=== PATIENT | male | born 1975 | race American Indian/Alaskan Native ===

== ENCOUNTER 2018-09-21 13:00 | Emergency (ER) | payer SELFPAY ==
[2018-09-21 13:10] VITALS: BP 132/91
--- NOTE | 2018-09-21 13:10 | Emergency Department Report ---
Chief Complaint: Sore Throat Stated Complaint: THROAT PAIN/LFT EAR Time Seen by Provider: 09/21/18 13:08 - HPI History of Present Illness: l eye pink l ear pain l throat pain for a week abc intact controlling secretions psh scrotal surgery pmh none rx none etoh occ drugs none cigar pcp none MSE COMPLETED MSE screening note: Focused history and physical exam performed. Due to findings the following was ordered: ED Disposition for MSE Condition: Stable
[2018-09-21] MEDS ORDERED: HYDROGEN PEROXIDE TP ONE (13:56)
[2018-09-21] MEDS ORDERED: HYDROGEN PEROXIDE ONE (13:58)
--- NOTE | 2018-09-21 14:26 | Emergency Department Report ---
Minor Respiratory - HPI Chief Complaint: Sore Throat Stated Complaint: THROAT PAIN/LFT EAR Time Seen by Provider: 09/21/18 13:08 Duration: 7 Pain Location: Ear Severity: mild Minor Respiratory: Yes Sore Throat, Yes Able to Tolerate Fluids, Yes Ear Pain, No Rhinorrhea, No Cough, No Sick Contacts, No Hemoptysis, No Chest Pain, No Shortness of Breath, No Fever Other History: Mr. Vaca is a healthy 43-year-old male who presents with left ear and left throat pain for the last week. No fever no cough no nasal congestion. Has had drainage in the back of throat. Mild symptoms. Pain appears to be worse when he swallows and radiates to the left ear. ED Review of Systems ROS: Stated complaint: THROAT PAIN/LFT EAR Other details as noted in HPI Constitutional: denies: fever, malaise ENT: ear pain. denies: dental pain Respiratory: denies: cough Cardiovascular: denies: chest pain ED Past Medical Hx - Past Medical History Previous Medical History?: No - Surgical History Past Surgical History?: Yes Additional Surgical History: lap scrotal as child - Social History Smoking Status: Current Some Day Smoker Substance Use Type: Alcohol Minor Respiratory Exam - Exam General: Vital signs noted. No distress. Alert and acting appropriately. HEENT: Yes Moist Mucous Membranes, No Pharyngeal Erythema, No Pharyngeal Exudate s, No Rhinorrhea Ear: Left EAC Pain (cerumen impaction ) Neck: Yes Adenopathy, No Supple Lungs: Yes Good Air Exchange, No Ronchi, No Stridor, No Cough, No Labored Respirations, No Retractions, No Use of Accessory Muscles Heart: Yes Regular, No Murmur Skin: No Rash, No Edema Neurologic: Alert and oriented, no deficits. Musculoskeletal: Unremarkable. ED Course Vital Signs 09/21/18 13:08 Temperature 98.2 F Pulse Rate 82 Respiratory 18 Rate Blood Pressure 132/91 [Right] O2 Sat by Pulse 100 Oximetry ED Medical Decision Making - Medical Decision Making Mr. Vaca has pain due to left cerumen impaction. I and nurse staff were able to remove majority of wax with currette and hydrogen peroxide. Symptoms improved after wax removal. Recommended over the counter wax removal solution and decongestants. Critical care attestation.: If time is entered above; I have spent that time in minutes in the direct care of this critically ill patient, excluding procedure time. ED Disposition Clinical Impression: Impacted cerumen of left ear Disposition: DC-01 TO HOME OR SELFCARE Is pt being admited?: No Does the pt Need Aspirin: No Condition: Stable Instructions: Cerumen Impaction (ED) Referrals: [facility] [Outside] - as needed Forms: Work/School Release Form(ED)
== END 2018-09-21 14:32 | disposition home or self-care (01) ==
LOC: ED 13:00
DX: H61.22 Impacted cerumen, left ear (principal); F17.200 Nicotine dependence, unspecified, uncomplicated

== ENCOUNTER 2019-01-26 08:43 | Emergency (ER) | payer OTHER ==
[2019-01-26 08:54] VITALS: BP 147/87
[2019-01-26] MEDS ORDERED: NORCO 10/325 PO ONE (09:35)
--- NOTE | 2019-01-26 10:05 | Emergency Department Report ---
ED General Adult HPI - General Chief complaint: Extremity Injury, Upper Stated complaint: RT SIDE PAIN Time Seen by Provider: 01/26/19 09:25 Source: patient Mode of arrival: Ambulatory Limitations: No Limitations - History of Present Illness Initial comments: This is a 43-year-old male nontoxic, well nourished in appearance, no acute signs of distress presents to the ED with c/o of right lateral rib pain status post fall that occurred yesterday. Patient stated that he had a mechanical trip and fall and fell on a iron last night. Patient stated he has right-sided rib pain in pain upon inspiration. Patient denies any shortness of breath. Patient denies any fever, chills, nausea, vomiting, headache, stiff neck, numbness or tingling. Patient denies any other trauma or injuries. Denies any back pain, neck pain or any head trauma. Denies any allergies significant past medical history. Denies any loss of consciousness. -: Last night Location: chest Radiation: non-radiation Severity scale (0 -10): 8 Quality: aching Consistency: constant Improves with: none Worsens with: none Associated Symptoms: denies other symptoms. denies: confusion, chest pain, cough, diaphoresis, fever/chills, headaches, loss of appetite, malaise, nausea/vomiting, rash, seizure, shortness of breath, syncope, weakness - Related Data Previous Rx's Medication Instructions Recorded Last Taken Type Acetaminophen/Codeine [Tylenol 1 tab PO Q6H PRN #20 tab 01/26/19 Unknown Rx /Codeine # 3 tab] Allergies Allergy/AdvReac Type Severity Reaction Status Date / Time No Known Allergies Allergy Verified 09/21/18 14:00 ED Review of Systems ROS: Stated complaint: RT SIDE PAIN Other details as noted in HPI Constitutional: denies: chills, fever Eyes: denies: eye pain, eye discharge, vision change ENT: denies: ear pain, throat pain Respiratory: denies: cough, shortness of breath, wheezing Cardiovascular: denies: chest pain, palpitations Endocrine: no symptoms reported Gastrointestinal: denies: abdominal pain, nausea, diarrhea Genitourinary: denies: urgency, dysuria Musculoskeletal: denies: back pain, joint swelling, arthralgia Skin: denies: rash, lesions Neurological: denies: headache, weakness, paresthesias Psychiatric: denies: anxiety, depression Hematological/Lymphatic: denies: easy bleeding, easy bruising ED Past Medical Hx - Past Medical History Previous Medical History?: No - Surgical History Past Surgical History?: Yes Additional Surgical History: lap scrotal as child - Social History Smoking Status: Never Smoker Substance Use Type: Alcohol - Medications Home Medications: Home Medications Medication Instructions Recorded Confirmed Last Taken Type Acetaminophen/Codeine [Tylenol 1 tab PO Q6H PRN #20 tab 01/26/19 Unknown Rx /Codeine # 3 tab] ED Physical Exam - General Limitations: No Limitations General appearance: alert, in no apparent distress - Head Head exam: Present: atraumatic, normocephalic - Eye Eye exam: Present: normal appearance - Neck Neck exam: Present: normal inspection, full ROM. Absent: tenderness, meningismus, lymphadenopathy - Respiratory Respiratory exam: Present: normal lung sounds bilaterally, chest wall tenderness (right lateral rib ). Absent: respiratory distress, wheezes, rales, rhonchi, stridor, accessory muscle use, decreased breath sounds, prolonged expiratory - Cardiovascular Cardiovascular Exam: Present: regular rate, normal rhythm, normal heart sounds. Absent: bradycardia, tachycardia, irregular rhythm, systolic murmur, diastolic murmur, rubs, gallop - GI/Abdominal GI/Abdominal exam: Present: soft, normal bowel sounds. Absent: distended, tenderness, guarding, rebound, rigid, diminished bowel sounds - Rectal Rectal exam: Present: deferred - Extremities Exam Extremities exam: Present: normal inspection, full ROM, normal capillary refill - Back Exam Back exam: Present: normal inspection, full ROM. Absent: tenderness, CVA tenderness (R), CVA tenderness (L), muscle spasm, paraspinal tenderness, vertebral tenderness, rash noted - Neurological Exam Neurological exam: Present: alert, oriented X3, normal gait - Psychiatric Psychiatric exam: Present: normal affect, normal mood - Skin Skin exam: Present: warm, dry, intact, normal color. Absent: rash ED Course Vital Signs 01/26/19 01/26/19 08:53 09:59 Temperature 98.1 F Pulse Rate 78 Respiratory 20 18 Rate Blood Pressure 147/87 [Right] O2 Sat by Pulse 97 Oximetry - Reevaluation(s) Reevaluation #1: 01/26/19 10:03 Patient is speaking in full sentences with no signs of distress noted. ED Medical Decision Making - Medical Decision Making This is a 43-year-old male that presents with a right rib 7th fracture. Patient is stable and was examined by me. Patient was given incentive spirometer and was educated by RN how to use it and how many times a day to use it as well as by me. He should receive Boody in the ER which he stated his symptoms of pain is subsiding and stated that a family member will drive the patient home after discharge due to possible drowsiness. A CT scan without contrast of chest has been obtained and dictated by radiologist. Patient was notified of the CT results with all questions noted by the patient. I will discharge patient with Tylenol with codeine for pain. Patient was instructed to Follow-up with a primary care doctor in 3-5 days or if symptoms worsen and continue return to emergency room as soon as possible. At time of discharge, the patient does not seem toxic or ill in appearance. No acute signs of distress noted. Patient agrees to discharge treatment plan of care. No further questions noted by the patient. Critical care attestation.: If time is entered above; I have spent that time in minutes in the direct care of this critically ill patient, excluding procedure time. ED Disposition Clinical Impression: Right rib fracture Qualifiers: Encounter type: initial encounter Rib fracture type: single rib Fracture type: closed Qualified Code(s): S22.31XA - Fracture of one rib, right side, initial encounter for closed fracture Disposition: DC-01 TO HOME OR SELFCARE Is pt being admited?: No Does the pt Need Aspirin: No Condition: Stable Instructions: Rib Fracture (ED), Acetaminophen/Codeine (By mouth), How to Use an Incentive Spirometer (ED) Additional Instructions: Follow-up with a primary care doctor in 3-5 days or if symptoms worsen and continue return to emergency room as soon as possible. Do not operate any machinery while taking Tylenol with codeine as this may cause drowsiness. Prescriptions: Acetaminophen/Codeine [Tylenol /Codeine # 3 tab] 1 tab PO Q6H PRN #20 tab PRN Reason: Pain , Severe (7-10) Referrals: [facility] MD AMILCAR [Primary Care Provider] - 3-5 Days PRIMARY CAREMD [Referring] - 3-5 Days GIGI MAGDALENO MD [Staff Physician] - 3-5 Days [facility] [Outside] - 3-5 Days [facility] [Outside] - 3-5 Days Forms: Work/School Release Form(ED)
--- NOTE | 2019-01-26 10:51 | Cat Scan Report ---
EXAM: CT CHEST WO CON HISTORY: right rib pain s/p fall TECHNIQUE: Spiral axial CT images are obtained through the chest without the administration of intrav enous contrast. Additional sagittal and coronal reformatted images are reconstructed. COMPARISON: None available. FINDINGS: CARDIOVASCULAR: The heart size and mediastinal vascular structures are within normal limits for non- dedicated exam. There is no significant aortic or coronary atherosclerosis seen. No thoracic aortic aneurysm is noted. MEDIASTINUM AND PAULA: No mass lesion, lymphadenopathy, or abnormal fluid collection is seen. LUNGS: There is no acute parenchymal infiltrate, lung nodule, or endobronchial obstructing lesion see n. No pleural effusion or pneumothorax is evident. CHEST WALL: Acute nondisplaced right lateral seventh rib fracture. The visualized bony structures ar e otherwise within normal limits. There are no chest wall lesions seen. No axillary lymphadenopathy is noted. UPPER ABDOMEN: Limited views through the upper abdomen demonstrate no gross acute abnormality. NOTE: Suboptimal exam for post traumatic evaluation without IV contrast administration. Note that sma ll or subtle post traumatic changes can be obscured in this radiologic setting. Consider followup khadijah luation with postcontrast CT for optimal assessment as clinically warranted. IMPRESSION: 1. Acute nondisplaced right lateral seventh rib fracture. 2. No chest wall or mediastinal hematoma, pleural effusion, pneumothorax, or lung contusion seen. This document is electronically signed by Kendal Blair MD., January 26 2019 10:49:42 AM ET
== END 2019-01-26 11:35 | disposition home or self-care (01) ==
LOC: ED 08:43
DX: S22.31XA Fracture of one rib, right side, initial encounter for closed fracture (principal); W01.0XXA Fall on same level from slipping, tripping and stumbling without subsequent striking against object, initial encounter; Y93.89 Activity, other specified; Y92.89 Other specified places as the place of occurrence of the external cause; Y99.8 Other external cause status
CPT/HCPCS: 71250; 99283

== ENCOUNTER 2021-02-07 14:34 | Emergency (ER) | payer SELFPAY ==
[2021-02-07 16:27] VITALS: BP 150/82
== END 2021-02-07 19:00 | disposition left against medical advice (07) ==
LOC: ED 14:34
DX: M25.512 Pain in left shoulder (principal); Z53.21 Procedure and treatment not carried out due to patient leaving prior to being seen by health care provider

== ENCOUNTER 2021-06-11 07:39 | Emergency (ER) | payer SELFPAY ==
--- NOTE | 2021-06-11 07:59 | Emergency Department Report ---
ED General Adult HPI - General Chief complaint: Headache Stated complaint: HICKUPS 3 DAYS PAIN IN CHEST Time Seen by Provider: 06/11/21 07:54 Source: patient Mode of arrival: Ambulatory Limitations: No Limitations - History of Present Illness Initial comments: 45-year-old -[place] male presents to the emergency room complaining of intermittent hiccups. Patient states in the last 3 days they have been more pronounced to the point they will cause him to have chest discomfort and a headache. Patient reports now he just has a slight headache no chest pain. Patient admits that he does drink alcohol only on the weekends socially. He denies any other past medical history. States that he has been seen at [place] before for this and they cannot find a reason. Patient reports he had called EMS yesterday and they did check his vital signs and evaluated him. Patient states his morning he decided to come in to be evaluated. States he last took some Advil was yesterday. He states he has a slight headache. Patient denies any head injury no change of vision no palpitation. States his chest pain is only from hiccuping. Onset/Timin -: days(s) Severity scale (0 -10): 4 Associated Symptoms: headaches (Slight) Treatments Prior to Arrival: none - Related Data Previous Rx's Medication Instructions Recorded Last Taken Type Acetaminophen/Codeine [Tylenol 1 tab PO Q6H PRN #20 tab 01/26/19 Unknown Rx /Codeine # 3 tab] Baclofen [Lioresal] 10 mg PO TID PRN #15 tab 06/11/21 Unknown Rx Omeprazole 20 mg PO QDAY #15 tablet. 06/11/21 Unknown Rx Allergies Allergy/AdvReac Type Severity Reaction Status Date / Time No Known Allergies Allergy Verified 09/21/18 14:00 ED Review of Systems ROS: Stated complaint: HICKUPS 3 DAYS PAIN IN CHEST Other details as noted in HPI ED Past Medical Hx - Past Medical History Previous Medical History?: No - Surgical History Past Surgical History?: Yes Additional Surgical History: lap scrotal as child - Social History Smoking Status: Never Smoker - Medications Home Medications: Home Medications Medication Instructions Recorded Confirmed Last Taken Type Acetaminophen/Codeine [Tylenol 1 tab PO Q6H PRN #20 tab 01/26/19 Unknown Rx /Codeine # 3 tab] Baclofen [Lioresal] 10 mg PO TID PRN #15 tab 06/11/21 Unknown Rx Omeprazole 20 mg PO QDAY #15 tablet. 06/11/21 Unknown Rx ED Physical Exam - General Limitations: No Limitations General appearance: alert, in no apparent distress - Head Head exam: Present: atraumatic, normocephalic - Eye Eye exam: Present: normal appearance - ENT ENT exam: Present: mucous membranes moist - Neck Neck exam: Present: normal inspection - Respiratory Respiratory exam: Present: normal lung sounds bilaterally. Absent: respiratory distress - Cardiovascular Cardiovascular Exam: Present: regular rate, normal rhythm. Absent: systolic murmur, diastolic murmur, rubs, gallop - GI/Abdominal GI/Abdominal exam: Present: soft, normal bowel sounds - Rectal Rectal exam: Present: deferred - Extremities Exam Extremities exam: Present: normal inspection - Back Exam Back exam: Present: normal inspection - Neurological Exam Neurological exam: Present: alert, oriented X3 - Psychiatric Psychiatric exam: Present: normal affect, normal mood - Skin Skin exam: Present: warm, dry, intact, normal color. Absent: rash ED Course Vital Signs 06/11/21 06/11/21 07:49 08:21 Temperature 98 F 98.0 F Pulse Rate 83 72 Respiratory 16 16 Rate Blood Pressure 173/101 120/70 [Left] O2 Sat by Pulse 96 100 Oximetry ED Medical Decision Making - Medical Decision Making 45-year-old -[place] male presents to the emergency room complaining of intermittent hiccups. Patient states in the last 3 days they have been more pronounced to the point they will cause him to have chest discomfort and a headache. Patient reports now he just has a slight headache no chest pain. Patient admits that he does drink alcohol only on the weekends socially. He d enies any other past medical history. States that he has been seen at [place] before for this and they cannot find a reason. Patient reports he had called EMS yesterday and they did check his vital signs and evaluated him. Patient states his morning he decided to come in to be evaluated. States he last took some Advil was yesterday. He states he has a slight headache. Patient denies any head injury no change of vision no palpitation. States his chest pain is only from hiccuping. Up-to-date reports first-line choice should be tried proton pump inhibitor and possibly baclofen. We will try those 2 medications and have patient follow-up with neuro. Critical care attestation.: If time is entered above; I have spent that time in minutes in the direct care of this critically ill patient, excluding procedure time. ED Disposition Clinical Impression: Chronic hiccups Disposition: 01 HOME / SELF CARE / HOMELESS Is pt being admited?: No Does the pt Need Aspirin: No Condition: Stable Additional Instructions: Please take medication as prescribed. Is important you follow-up with your primary care provider and a possible neurologist. I have listed information below for your convenience. Take Tylenol and ibuprofen or Aleve for your headache. Prescriptions: Baclofen [Lioresal] 10 mg PO TID PRN #15 tab PRN Reason: Hiccups Omeprazole 20 mg PO QDAY #15 tablet.dr Referrals: SUSY GEE II, MD [Staff Physician] - 3-5 Days AVILA MCLAUGHLIN MD [Staff Physician] - 3-5 Days Forms: Work/School Release Form(ED)
[2021-06-11 08:22] VITALS: BP 120/70
== END 2021-06-11 08:22 | disposition home or self-care (01) ==
LOC: ED 07:39
DX: R06.6 Hiccough (principal); G89.29 Other chronic pain; R07.89 Other chest pain; R51.9 Headache, unspecified; Z98.890 Other specified postprocedural states; Z79.899 Other long term (current) drug therapy
CPT/HCPCS: 99282